=== PATIENT | female | born 1960 | race Caucasian/White ===

== ENCOUNTER 2020-03-12 07:12 | Day surgery (SDC) | payer BC ==
[2020-03-09 10:34] VITALS: BMI 18.4
[2020-03-12] MEDS ORDERED: PROPOFOL 20 ML ONE ×4 (07:52)
[2020-03-12] MEDS ORDERED: LIDOCAINE HCL/PF 2% SDV 5ML VIAL ONE (08:06)
[2020-03-12 09:08] VITALS: TEMP 97.8
[2020-03-12 09:36] VITALS: BP 121/64; PULSE 79
== END 2020-03-12 09:45 | disposition home or self-care (01) ==
LOC: FASU-ENDO 07:12
PROVIDERS: ATTEND Internal Medicine Gastroenterology
PROC: 0DJD8ZZ Inspection of Lower Intestinal Tract, Via Natural or Artificial Opening Endoscopic (ICD-10-PCS; principal; 2020-03-12 08:27)
DX: Z12.11 Encounter for screening for malignant neoplasm of colon (principal); Z80.0 Family history of malignant neoplasm of digestive organs; K57.30 Diverticulosis of large intestine without perforation or abscess without bleeding